=== PATIENT | male | born 1990 | race American Indian/Alaskan Native ===

== ENCOUNTER 2019-04-09 00:47 | Emergency (ER) | payer SELFPAY ==
[2019-04-09 01:15] LABS: Basophils # (Auto) 0.1 K/mm3 (0.0-0.1); Basophils % (Auto) 0.5 % (0.0-1.8); Hematocrit 50.2 % (35.5-45.6); Hemoglobin 17.2 gm/dl (11.8-15.2); Lymphocytes # (Auto) 2.1 K/mm3 (1.2-5.4); Lymphocytes % (Auto) 16.9 % (13.4-35.0); Mean Corpuscular HGB Conc 34 % (32-34); Mean Corpuscular Volume 95 fl (84-94); Monocytes # (Auto) 1.5 K/mm3 (0.0-0.8); Monocytes % (Auto) 12.4 % (0.0-7.3); Platelet Count 234 K/mm3 (140-440); Red Cell Distribution Width 13.8 % (13.2-15.2)
[2019-04-09 01:35] LABS: Calcium 11.8 mg/dL (8.4-10.2)
[2019-04-09] MEDS ORDERED: ONDANSETRON 4 MG/2 ML INJ IV ONE ×2 (03:46→05:17)
[2019-04-09] MEDS ORDERED: MORPHINE 4 MG/1 ML INJ IV ONE ×2 (03:46→05:50)
[2019-04-09 04:31] LABS: Bacteria,Urine 1+ /HPF (Negative); Bilirubin,Urine NEG (Negative); Blood,Urine LG (Negative); Color,Urine Yellow (Yellow); Mucus,Urine 1+ /HPF; Urobilinogen,Urine < 2.0 mg/dL (<2.0)
--- NOTE | 2019-04-09 04:51 | Cat Scan Report ---
CT abdomen pelvis w con INDICATION: Severe RLQ Pain. TECHNIQUE: All CT scans at this location are performed using CT dose reduction for ALARA by means of automated e xposure control. COMPARISON: None available. FINDINGS: There is extensive artifact from patient motion, obscuring considerable detail. Liver and gallbladder are grossly negative. Spleen is not well seen. Pancreas is also grossly negativ e, and abdominal aorta is normal in size. Bowel in the midabdomen is completely obscured. Pelvis No obvious free fluid or inflammatory change. Appendix cannot be identified, partly due to extensive artifact and partly due to the patient's lack of intra-abdominal fat. IMPRESSION: 1. Suboptimal exam because of respiratory/peristalsis motion artifact, as well as the patient's total lack of intra-abdominal fat. 2. I see no gross abnormalities, but the appendix is not identified. Signer Name: Jesse Palmer MD Signed: 04/09/2019 4:46 AM Workstation Name: [id number]
[2019-04-09] MEDS ORDERED: cefTRIAXone/NS 1 GM/50 ML 1 GM/50 ML BAG IV ONE (05:28)
[2019-04-09] MEDS ORDERED: diphenhydrAMINE 50 MG/ML VIAL IV ONE (05:50)
[2019-04-09] MEDS ORDERED: FAMOTIDINE 20 MG/2 ML INJ IV ONE (05:50)
[2019-04-09] MEDS ORDERED: METOCLOPRAMIDE 10 MG/2 ML INJ IV ONE (05:50)
--- NOTE | 2019-04-09 07:12 | Emergency Department Report ---
<RYAN MIGUEL - Last Filed: 04/09/19 07:08> ED Abdominal Pain HPI - General Chief Complaint: Abdominal Pain Stated Complaint: ABD PAIN Source: patient Mode of arrival: Ambulatory Limitations: No Limitations - History of Present Illness Initial Comments: Patient is a 29-year-old male with no past medical history who presents to the ED with acute onset persistent severe abdominal pain in the right lower quadrant area radiating to the periumbilical area with intermittent nausea and vomiting for the last 3 days, worse in the last 12 hours. Patient states that the pain is constant and sharp and persistent and that he is unable to sleep or sit still because of severe pain. Patient denies fever, chills, dizziness, syncope, testicle pain, dysuria, urinary frequency and urgency, headache, chest pain or shortness of breath, hematuria or headache. MD Complaint: abdominal pain, other (nausea and vomiting) -: Sudden, days(s) (3) Location: periumbilical, RLQ Radiation: RLQ Severity: severe Severity scale (0 -10): 10 Quality: cramping, aching, sharp Consistency: constant Improves With: nothing Worsens With: nothing Associated Symptoms: denies other symptoms, nausea, vomiting. denies: diarrhea, fever, chills, constipation, dysuria, hematemesis, hematochezia, melena, hematuria, anorexia, syncope - Related Data Previous Rx's Medication Instructions Recorded Last Taken Type Ondansetron [Zofran Odt] 4 mg PO Q8HR PRN #12 tab.rapdis 04/09/19 Unknown Rx Allergies Allergy/AdvReac Type Severity Reaction Status Date / Time No Known Allergies Allergy Unverified 04/09/19 00:54 ED Review of Systems Constitutional: denies: chills, fever Eyes: denies: eye pain, eye discharge, vision change ENT: denies: ear pain, throat pain Respiratory: denies: cough, shortness of breath, wheezing Cardiovascular: denies: chest pain, palpitations Endocrine: no symptoms reported Gastrointestinal: abdominal pain, nausea, vomiting. denies: diarrhea Genitourinary: denies: urgency, dysuria Musculoskeletal: denies: back pain, joint swelling, arthralgia Skin: denies: rash, lesions Neurological: denies: headache, weakness, paresthesias Psychiatric: denies: anxiety, depression Hematological/Lymphatic: denies: easy bleeding, easy bruising ED Past Medical Hx - Past Medical History Previous Medical History?: No - Surgical History Past Surgical History?: No - Social History Smoking Status: Never Smoker Substance Use Type: Alcohol, Marijuana - Medications Home Medications: Home Medications Medication Instructions Recorded Confirmed Last Taken Type Ondansetron [Zofran Odt] 4 mg PO Q8HR PRN #12 tab.rapdis 04/09/19 Unknown Rx ED Physical Exam - General Limitations: No Limitations General appearance: alert, in no apparent distress - Head Head exam: Present: atraumatic, normocephalic, normal inspection - Eye Eye exam: Present: normal appearance, PERRL, EOMI Pupils: Present: normal accommodation - ENT ENT exam: Present: normal exam, normal orophraynx, mucous membranes moist, TM's normal bilaterally, normal external ear exam - Neck Neck exam: Present: normal inspection, full ROM. Absent: tenderness - Respiratory Respiratory exam: Present: normal lung sounds bilaterally. Absent: respiratory distress, wheezes, rales, rhonchi, chest wall tenderness, accessory muscle use, decreased breath sounds - Cardiovascular Cardiovascular Exam: Present: normal rhythm, tachycardia, normal heart sounds. Absent: systolic murmur, diastolic murmur, rubs, gallop - GI/Abdominal GI/Abdominal exam: Present: soft, tenderness (palpable severe right lower quadrant and periumbilical rebound tenderness with guarding), guarding, rebound, normal bowel sounds. Absent: rigid - Extremities Exam Extremities exam: Present: normal inspection, full ROM, normal capillary refill - Back Exam Back exam: Present: normal inspection, full ROM. Absent: tenderness, CVA tenderness (R), CVA tenderness (L), muscle spasm, paraspinal tenderness, vertebral tenderness - Neurological Exam Neurological exam: Present: alert, oriented X3, CN II-XII intact, normal gait, reflexes normal - Psychiatric Psychiatric exam: Present: normal affect, normal mood, anxious - Skin Skin exam: Present: warm, dry, intact, normal color. Absent: rash ED Medical Decision Making - Lab Data Result diagrams: 04/09/19 01:01 04/09/19 01:01 - Radiology Data Radiology results: report reviewed, image reviewed Findings [facility] [address] [place] [address] Cat Scan Report Signed Patient: CANDICE GAY MR#: [id number] 0 : 1990 Acct:[id number] Age/Sex: 29 / M ADM Date: 04/09/19 Loc: ED Attending Dr: Ordering Physician: PAIGE CANTU Date of Service: 04/09/19 Procedure(s): CT abdomen pelvis w con Accession Number(s): [id number] cc: PAIGE CANTU CT abdomen pelvis w con INDICATION: Severe RLQ Pain. TECHNIQUE: All CT scans at this location are performed using CT dose reduction for ALARA by means of automated exposure control. COMPARISON: None available. FINDINGS: There is extensive artifact from patient motion, obscuring considerable detail. Liver and gallbladder are grossly negative. Spleen is not well seen. Pancreas is also grossly negative, and abdominal aorta is normal in size. Bowel in the midabdomen is completely obscured. Pelvis No obvious free fluid or inflammatory change. Appendix cannot be identified, partly due to extensive artifact and partly due to the patient's lack of intra-abdominal fat. IMPRESSION: 1. Suboptimal exam because of respiratory/peristalsis motion artifact, as well as the patient's total lack of intra-abdominal fat. 2. I see no gross abnormalities, but the appendix is not identified. Signer Name: Jesse Palmer MD Signed: 04/09/2019 4:46 AM Workstation Name: [id number] Transcribed By: TM Dictated By: Jesse Palmer MD Electronically Authenticated By: Jesse Palmer MD Signed Date/Time: 04/09/19445 DD/ 9 - Medical Decision Making This is a 29-year-old male with no past medical history present ed to the ED with severe right lower quadrant and. Medical Dumble pain with nausea and vomiting. In the ED, patient is alert and oriented 3, anxious, tachycardic, unable to lay still for physical exam adequately because of persistent movement in the examination bed but generally the physical exam shows palpable right lower quadrant and. Medical rebound tenderness with guarding. Lab test results show acute leukocytosis of 12,200, hypercalcemia of 11.8, total bilirubin of 1.4 and hyperglycemia of 1 39 mg/dL. Urinalysis shows significant urinary tract infection. Initial abdomen pelvis CT scanning with IV contrast was suboptimal because of the patient's persistent movement during the exam. Therefore report was inconclusive as the appendix could not be visualized because of the patient's movements during the exam and artifacts seen during the imaging. These findings were discussed with the ED attending physician Dr. Justice Reynoso were advised that the patient be medicated for pain and abdomen pelvis CT scan with oral contrast repeated to characterize the etiology of the patient's abdominal pain. Patient was therefore medicated again with medications for pain and antiemetics and oral contrast given to the patient. Abdomen pelvis CT scan with oral contrast was repeated. At the time of shift change at 0700 hrs. The abdomen pelvis CT scan with oral contrast report was pending. The patient Was therefore transferred to Yefri Simpson PA-C at shift change. Tatiana DURAN shall review the imaging report, reevaluate the patient and disposition the patient accordingly. - Differential Diagnosis appendicitis; perforated Viscous; UTI; Kidney stones; pancreatitis; Colitis ED Disposition Clinical Impression: Abdominal pain in male, Cannabis hyperemesis syndrome concurrent with and due to cannabis abuse Disposition: DC-01 TO HOME OR SELFCARE Is pt being admited?: No Does the pt Need Aspirin: No Condition: Stable Instructions: Abdominal Pain (ED) Additional Instructions: CT scan of the abdomen was negative for any acute findings. Please continue with Zofran as needed for nausea and vomiting. Follow-up with print press operator on have listed there information below for your convenience. Prescriptions: Ondansetron [Zofran Odt] 4 mg PO Q8HR PRN #12 tab.rapdis PRN Reason: Nausea And Vomiting Referrals: PRIMARY CARE, [Primary Care Provider] - 3-5 Days [facility] [Provider Group] - 3-5 Days Forms: Work/School Release Form(ED) <ANA ROSA CHANDLER - Last Filed: 04/09/19 10:20> ED Review of Systems ROS: Stated complaint: ABD PAIN Other details as noted in HPI ED Course Vital Signs 04/09/19 04/09/19 04/09/19 00:53 04:07 04:37 Temperature 98.5 F Pulse Rate 127 H Respiratory 20 20 22 Rate Blood Pressure 147/114 O2 Sat by Pulse 98 Oximetry 04/09/19 06:14 Temperature Pulse Rate Respiratory 20 Rate Blood Pressure O2 Sat by Pulse Oximetry ED Medical Decision Making - Lab Data Result diagrams: 04/09/19 01:01 04/09/19 01:01 - Radiology Data Patient: CANDICE GAY MR#: [id number] 0 : 1990 Acct:[id number] Age/Sex: 29 / M ADM Date: 04/09/19 Loc: ED Attending Dr: Ordering Physician: PAIGE CANTU Date of Service: 04/09/19 Procedure(s): CT abdomen pelvis w con Accession Number(s): [id number] cc: PAIGE CANTU CT ABDOMEN AND PELVIS WITH CONTRAST HISTORY: pain, scanned twice previous scan motion. Severe right lower quadrant pain COMPARISON: Earlier today at 0419 hours TECHNIQUE: Helical CT images of the abdomen and pelvis were obtained following administration of intravenous contrast. Oral contrast was also administered. Sagittal and coronal reformatted images were reviewed. All CT scans at this location are performed using CT dose reduction for ALARA by means of automated exposure control. FINDINGS: Abdomen/pelvis: This patient was rescanned secondary to excessive motion artifact on the initial scan. There is residual IV contrast in the renal collecting systems and bladder but inadequate vascular enhancement. Oral contrast is present throughout most of the GI system. The appendix is identified in the right lower quadrant just inferior to the cecum. No evidence for acute appendicitis. The remaining bowel loops are unremarkable. No evidence for obstruction or focal inflammation. The liver, biliary system, pancreas, spleen, kidneys, adrenal glands, aorta and bladder are unremarkable. No evidence for free fluid, free air or inflammatory changes. Lungs/bones: The lung bases are clear. Heart size is normal. Normal bony structures. IMPRESSION: Unremarkable examination. No acute abdominal process is identified. Signer Name: Timo Nolan Jr, MD Signed: 04/09/2019 8:29 AM Workstation Name: [id number] Transcribed By: TTR Dictated By: TIMO NOLAN JR, MD Electronically Authenticated By: TIMO NOLAN JR, MD Signed Date/Time: 04/09/19851 DD/ 1 TD/TT: - Medical Decision Making Spoke with patient regarding CT study which was negative for any acute findings. When asked this patient smoke marijuana he agrees that he smokes a lot. Discussed the patient that he most likely has cannabis hyperemesis syndrome. Discussed the patient has he needs to stop smoking cannabis we will continue to have these problems. Patient verbalized understanding. Critical care attestation.: If time is entered above; I have spent that time in minutes in the direct care of this critically ill patient, excluding procedure time. ED Disposition Is pt being admited?: No Does the pt Need Aspirin: No
--- NOTE | 2019-04-09 08:56 | Cat Scan Report ---
CT ABDOMEN AND PELVIS WITH CONTRAST HISTORY: pain, scanned twice previous scan motion. Severe right lower quadrant pain COMPARISON: Earlier today at 0419 hours TECHNIQUE: Helical CT images of the abdomen and pelvis were obtained following administration of intr avenous contrast. Oral contrast was also administered. Sagittal and coronal reformatted images were r eviewed. All CT scans at this location are performed using CT dose reduction for ALARA by means of au tomated exposure control. FINDINGS: Abdomen/pelvis: This patient was rescanned secondary to excessive motion artifact on the initial sca n. There is residual IV contrast in the renal collecting systems and bladder but inadequate vascular enhancement. Oral contrast is present throughout most of the GI system. The appendix is identified in the right lower quadrant just inferior to the cecum. No evidence for acute appendicitis. The remaini ng bowel loops are unremarkable. No evidence for obstruction or focal inflammation. The liver, biliary system, pancreas, spleen, kidneys, adrenal glands, aorta and bladder are unremarka ble. No evidence for free fluid, free air or inflammatory changes. Lungs/bones: The lung bases are clear. Heart size is normal. Normal bony structures. IMPRESSION: Unremarkable examination. No acute abdominal process is identified. Signer Name: Timo Nolan Jr, MD Signed: 04/09/2019 8:29 AM Workstation Name: [id number]
[2019-04-09 09:48] VITALS: BP 104/66
== END 2019-04-09 10:21 | disposition home or self-care (01) ==
LOC: ED 00:47
DX: R10.31 Right lower quadrant pain (principal); R10.33 Periumbilical pain; F12.188 Cannabis abuse with other cannabis-induced disorder
CPT/HCPCS: 36415; 74177; 80053; 81001; 85025; 87086; 96365; 96375; 96376; 99284; J0696; J1200; J2270; J2405; J2765; Q9967